=== PATIENT | male | born 1985 | race Caucasian/White ===

== ENCOUNTER 2018-10-30 13:34 | Emergency (ER) | payer OTHER ==
[~2018-10-30] VITALS: Ht 188 cm; Wt 92.1 kg
[2018-10-30 13:48] VITALS: Ht 188 cm; Wt 92.1 kg
[2018-10-30 17:11] VITALS: BP 136/75
== END 2018-10-30 17:11 | disposition home or self-care (01) ==
LOC: ED 13:34
DX: S61.216A Laceration without foreign body of right little finger without damage to nail, initial encounter (principal); E78.00 Pure hypercholesterolemia, unspecified; W25.XXXA Contact with sharp glass, initial encounter; Y93.G1 Activity, food preparation and clean up; Y92.89 Other specified places as the place of occurrence of the external cause; Y99.8 Other external cause status
CPT/HCPCS: J2001